=== PATIENT | female | born 1935 | race Caucasian/White ===

== ENCOUNTER 2018-11-23 15:29 | Emergency (ER) | payer OTHER, MEDICARE ==
[2018-11-23 17:27] LABS: Absolute Lymphocytes (CBC) 1.8 K/uL (0.7-4.9); Absolute Monocytes 1.4 K/uL (0.1-1.3); Absolute Neutrophil 9.3 K/uL (1.8-8.0); Basophils % 0.3 % (0-1.3); Eosinophils % 0.1 % (0-4.4); Hematocrit 40.6 % (36.0-45.0); Lymphocytes % 14.1 % (15.3-44.8); MPV 8.3 fL (7.6-11.3); RBC Red Blood Cell Count 4.33 M/uL (3.86-4.86)
[2018-11-23 17:29] LABS: Protime INR 1.04
[2018-11-23] MEDS ORDERED: ONDANSETRON 4 MG/2 ML VIAL ONE ×2 (17:30→19:29)
[2018-11-23] MEDS ORDERED: FAMOTIDINE 20 MG/2 ML VIAL IV ONE (17:30)
--- NOTE | 2018-11-23 17:32 | RAD REPORT ---
EXAM DESCRIPTION: RAD - Chest Single View - 11/23/2018 5:26 pm CLINICAL HISTORY: vomiting Chest pain. COMPARISON: CHEST SINGLE VIEW dated 08/23/2013 FINDINGS: Portable technique limits examination quality. The lungs are emphysematous but grossly clear. The heart is normal in size. No displaced fractures. IMPRESSION: No acute intrathoracic process suspected. Mild COPD.
[2018-11-23 17:45] LABS: ALT/SGPT 28 U/L (12-78); AST/SGOT 26 U/L (15-37); Albumin 4.3 g/dL (3.4-5.0); Alkaline Phosphatase 96 U/L (45-117); BUN Blood Urea Nitrogen 22 mg/dL (7-18); Bicarbonate 23 mmol/L (21-32); Bilirubin Direct 0.2 mg/dL (0-0.2); Bilirubin Total 0.6 mg/dL (0.2-1.0); Glucose Level 97 mg/dL (74-106); Lipase 98 U/L (73-393); Magnesium 2.2 mg/dL (1.8-2.4); NT PRO-BNP 635 pg/mL (<450); Protein, Total 7.9 g/dL (6.4-8.2); Sodium Level 137 mmol/L (136-145); Troponin (Emerg Dept Use Only) < 0.02 ng/mL (0.0-0.045)
[2018-11-23 17:49] LABS: Potassium 2.8 mmol/L (3.5-5.1)
--- NOTE | 2018-11-23 19:24 | RAD REPORT ---
EXAM DESCRIPTION: CTAbdomen Pelvis W Contrast - 11/23/2018 7:14 pm CLINICAL HISTORY: Abdominal pain. vomiting;Abd pain COMPARISON: No comparisons TECHNIQUE: Biphasic CT imaging of the abdomen and pelvis was performed with 100 ml non-ionic IV cont rast. All CT scans are performed using dose optimization technique as appropriate and may include automated exposure control or mA/KV adjustment according to patient size. FINDINGS: The lung bases are clear. Mild fatty liver is noted. The spleen, adrenal glands and kidneys show no acute finding. No pancreati c mass. Punctate calcifications are seen in the pancreatic body. Moderate aortoiliac atherosclerosis. No bowel obstruction, free air, free fluid or abscess. The appendix is not identified as a discrete structure, however, no secondary findings of appendicitis are identified. No evidence of significan t lymphadenopathy. Very advanced degenerative changes are present both hips. Advanced S-shaped thoracolumbar scoliosis i s present with multilevel degenerative changes. IMPRESSION: No acute intra-abdominal or pelvic finding. Chronic pancreatitis. 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
[2018-11-23] MEDS ORDERED: POTASSIUM 25 MEQ EFFERV TAB ONE (19:29)
[2018-11-23] MEDS ORDERED: KCL 20 MEQ/100 mL IVPB 20 MEQ/100 ML BAG IV ONE (19:30)
[2018-11-23] MEDS ORDERED: NA CHLORIDE 0.9% 1,000 ML ONE (19:30)
[2018-11-23 20:47] LABS: Barbiturates NEGATIVE (NEGATIVE); Benzodiazepines POSITIVE (NEGATIVE); Cocaine NEGATIVE (NEGATIVE); METHAMPHETAM NEGATIVE (NEGATIVE); Methadone NEGATIVE (NEGATIVE); Opiates POSITIVE (NEGATIVE); Phencyclidine NEGATIVE (NEGATIVE); THC Cannibis POSITIVE (NEGATIVE)
[2018-11-23 21:27] LABS: Urine Blood 2+ (NEG); Urine Glucose NEGATIVE (NEG); Urine Protein 2+ (NEG); Urine Specific Gravity 1.015 (1.005-1.030)
[2018-11-23] MEDS ORDERED: NA CHLORIDE 0.9% 50 ML IV ONE (22:00)
[2018-11-23] MEDS ORDERED: CEFTRIAXONE 1000 MG/VIAL ONE (22:00)
[2018-11-23 22:35] LABS: BUN Blood Urea Nitrogen 22 mg/dL (7-18); Bicarbonate 24 mmol/L (21-32); Glucose Level 86 mg/dL (74-106); Potassium 4.2 mmol/L (3.5-5.1); Sodium Level 137 mmol/L (136-145)
--- NOTE | 2018-11-23 22:50 | EDPHYS ---
Physician Documentation [facility] Name: Yulissa Low Age: 83 yrs Sex: Female : 1935 Arrival Date: 11/23/2018 Time: 15:33 Bed 14 Private MD: Out, [facility] ED Physician Alec Hernández HPI: 11/23 17:15 This 83 yrs old Female presents to ER via Ambulatory with complaints of cp Abdominal Pain, Vomiting. 17:15 The patient presents with abdominal pain that is diffuse. Onset: The symptoms/episode cp began/occurred 2 day(s) ago. The symptoms do not radiate. Associated signs and symptoms: Pertinent positives: nausea, vomiting, Pertinent negatives: blood in stools, chest pain, constipation, diarrhea, fever, vomiting blood. The symptoms are described as constant. Severity of pain: in the emergency department the pain is unchanged despite home interventions. Historical: - Allergies: 15:42 No Known Allergies; hj - Home Meds: 15:42 gabapentin 800 mg oral tab 1 tab 3 times per day [Active]; librium 10 mg OD daily [Active]; Synthroid 112 mcg Oral tab 1 tab once daily [Active]; Mobic 15 mg oral tab 1 tab once daily [Active]; Effexor Oral 75 mg three times a day [Active]; trazodone 150 mg Oral tab 1 tab 3 times per day [Active]; [place] 10-325 mg Oral tab 1 tab every 4 hours [Active]; Lidoderm 5 % Topical ptmd 1 patch once daily [Active]; - PMHx: 17:29 Hypothyroidism; la1 - PSHx: 15:42 None; hj - Immunization history:: Adult Immunizations not up to date. - Social history:: Smoking status: Patient/guardian denies using tobacco, Patient/guardian denies using alcohol. - Ebola Screening: : Patient negative for fever greater than or equal to 101.5 degrees Fahrenheit, and additional compatible Ebola Virus Disease symptoms Patient denies exposure to infectious person Patient denies travel to an Ebola-affected area in the 21 days before illness onset. ROS: 17:20 Constitutional: Positive for poor PO intake, Negative for body aches, chills, fever. cp 17:20 Eyes: Negative for injury, pain, redness, and discharge. cp 17:20 Cardiovascular: Negative for chest pain, edema, palpitations. 17:20 Respiratory: Negative for cough, shortness of breath, wheezing. 17:20 Abdomen/GI: Positive for abdominal pain, nausea and vomiting, anorexia, Negative for constipation, hematemesis, black/tarry stool, rectal bleeding. 17:20 : Negative for urinary symptoms. 17:20 Skin: Negative for cellulitis, rash. 17:20 Neuro: Negative for altered mental status, dizziness, headache, weakness. 17:20 All other systems are negative. Exam: 17:20 ECG was reviewed by the Attending Physician. cp 17:23 Constitutional: The patient appears in no acute distress, alert, awake, cp non-diaphoretic, non-toxic, well developed, well nourished. 17:23 Head/Face: Normocephalic, atraumatic. cp 17:23 Eyes: Pupils equal round and reactive to light, extra-ocular motions intact. Lids and lashes normal. Conjunctiva and sclera are non-icteric and not injected. Cornea within normal limits. Periorbital areas with no swelling, redness, or edema. ENT: Nares patent. No nasal discharge, no septal abnormalities noted. Tympanic membranes are normal and external auditory canals are clear. Oropharynx with no redness, swelling, or masses, exudates, or evidence of obstruction, uvula midline. Mucous membranes moist. Chest/axilla: Normal chest wall appearance and motion. Nontender with no deformity. No lesions are appreciated. 17:23 Cardiovascular: Rate: normal, Rhythm: regular, Edema: is not appreciated, JVD: is not appreciated. 17:23 Respiratory: the patient does not display signs of respiratory distress, Respirations: normal, no use of accessory muscles, no retractions, no splinting, no tachypnea, labored breathing, is not present, Breath sounds: are clear throughout, no decreased breath sounds, no stridor, no wheezing. 17:23 Abdomen/GI: Inspection: abdomen appears normal, Bowel sounds: active, all quadrants, Palpation: soft, in all quadrants, mild abdominal tenderness, in all quadrants. 17:23 Back: CVA tenderness, is absent. 17:23 Skin: cellulitis, is not appreciated, no rash present. 17:23 Neuro: Orientation: to person, place \T\ time. Mentation: is normal, Cerebellar function: is grossly normal, Motor: moves all fours, strength is normal, Sensation: is normal. Vital Signs: 15:43 BP 171 / 100; Pulse 92; Resp 18; Temp 98.2(O); Pulse Ox 97% on R/A; Weight 61.23 kg; hj Height 5 ft. 4 in. (162.56 cm); Pain 3/10; 18:22 BP 174 / 107; Pulse 90; Resp 8; Temp 99.2(O); Pulse Ox 98% on R/A; mh5 18:42 BP 161 / 93; Pulse 89; Resp 16; Pulse Ox 98% on R/A; la1 19:33 BP 159 / 94; Pulse 77; Resp 18 S; Pulse Ox 98% on R/A; cc3 20:45 BP 153 / 87; Pulse 76; Resp 18 S; Pulse Ox 98% on R/A; cc3 21:30 BP 155 / 83; Pulse 77; Resp 19 S; Pulse Ox 98% on R/A; cc3 22:30 BP 140 / 80; Pulse 74; Resp 18 S; Pulse Ox 98% on R/A; cc3 15:43 Body Mass Index 23.17 (61.23 kg, 162.56 cm) hj MDM: 16:55 Patient medically screened. cp 18:00 Differential diagnosis: diverticulitis, gastritis, non-specific abd pain, pancreatitis, cp Ureterolithiasis, urinary tract infection. 22:45 Data reviewed: vital signs, nurses notes, lab test result(s), EKG, radiologic studies, cp CT scan. 22:45 Counseling: I had a detailed discussion with the patient and/or guardian regarding: the cp historical points, exam findings, and any diagnostic results supporting the discharge/admit diagnosis, lab results, radiology results, to return to the emergency department if symptoms worsen or persist or if there are any questions or concerns that arise at home. Response to treatment: the patient's symptoms have markedly improved after treatment, and as a result, I will discharge patient. Special discussion: Based on the patient's Hx, exam, and Dx evaluation, there is no indication for emergent surgery or inpatient Tx. It is understood by the patient/guardian that if the Sx's persist or worsen they need to return immediately for re-evaluation. 11/23 17:08 Order name: Basic Metabolic Panel; Complete Time: 18:18 cp 11/23 22:41 Interpretation: Normal except: K 2.8; BUN 22; GFR 81. cp / 17:08 Order name: CBC with Diff; Complete Time: 17:45 cp 11/23 19:42 Interpretation: Normal except: WBC 12.5; RAQUEL% 74.5; LYM% 14.1; NEUT A 9.3; MNA 1.4. cp /04 17:08 Order name: LFT's; Complete Time: 18:18 cp 11/23 17:08 Order name: Magnesium; Complete Time: 18:18 cp 11/23 17:08 Order name: NT PRO-BNP; Complete Time: 18:18 cp 11/23 17:08 Order name: PT-INR; Complete Time: 17:45 cp 11/23 17:08 Order name: Troponin (emerg Dept Use Only); Complete Time: 18:18 cp 11/23 17:08 Order name: XRAY Chest (1 view); Complete Time: 17:45 cp 11/23 17:08 Order name: Lipase; Complete Time: 18:18 cp 11/23 17:45 Order name: UDS; Complete Time: 21:16 cp 11/23 22:42 Interpretation: Normal except: BZO POSITIVE; THC POSITIVE; OPI POSITIVE. cp 11/23 20:52 Order name: Urine Dipstick--Ancillary (enter results); Complete Time: 21:33 em1 11/23 21:34 Interpretation: Normal except: UKET 4+; UBLD 2+; UPROT 2+; U NIT POSITIVE; UESTR TRACE. cp 11/23 21:17 Order name: BMP: recheck potassium after potassium is done; Complete Time: 22:37 cp 11/23 22:37 Interpretation: Normal except: BUN 22; CA 8.4. cp 11/23 17:08 Order name: EKG; Complete Time: 17:09 cp 11/23 17:08 Order name: Cardiac monitoring; Complete Time: 18:19 cp 11/23 17:08 Order name: EKG - Nurse/Tech; Complete Time: 17:27 cp 11/23 17:08 Order name: IV Saline Lock; Complete Time: 17:27 cp 11/23 17:08 Order name: Labs collected and sent; Complete Time: 17:28 cp 11/23 17:08 Order name: O2 Per Protocol; Complete Time: 17:28 cp 11/23 17:08 Order name: O2 Sat Monitoring; Complete Time: 17:28 cp 11/23 17:08 Order name: CT Abd/Pelvis - W/Contrast: give oral contrast; Complete Time: 19:41 cp 11/23 19:43 Order name: PO challenge; Complete Time: 19:50 cp EC:20 Rate is 60 beats/min. Rhythm is regular. IA interval is normal. QRS interval is normal. cp QT interval is normal. Interpreted by me. Reviewed by me. Administered Medications: 17:28 Drug: Zofran 4 mg Route: IVP; Site: right antecubital; la1 18:41 Follow up: Response: No adverse reaction la1 17:28 Drug: Pepcid 20 mg Route: IVP; Site: right antecubital; la1 18:40 Follow up: Response: Adverse reaction, Physician notified la1 19:25 Drug: Zofran 4 mg Route: IVP; Site: right antecubital; cc3 20:00 Follow up: Response: No adverse reaction; Nausea is decreased cc3 19:29 Drug: NS 0.9% 1000 ml Route: IV; Rate: 100 ml/hr; Site: right antecubital; cc3 22:30 Follow up: Response: No adverse reaction; IV Status: Order to discontinue infusion; cc3 patient discharged home 19:29 Drug: Potassium Chloride 20 mEq Route: IV; Rate: calculated rate; Site: right cc3 antecubital; 21:30 Follow up: Response: No adverse reaction; IV Status: Completed infusion; IV Intake: cc3 100ml 19:40 Drug: Potassium Effervescent Tablet 50 mEq Route: PO; cc3 20:00 Follow up: Response: No adverse reaction cc3 21:50 Drug: Rocephin - (cefTRIAXone) 1 grams Route: IVPB; Infused Over: 30 mins; Site: right cc3 antecubital; 22:20 Follow up: Response: No adverse reaction; IV Status: Completed infusion; IV Intake: [id number] Disposition: 11/23/18 22:49 Discharged to Home. Impression: Nausea and vomiting, Hypokalemia, Urinary tract infection, site not specified. - Condition is Stable. - Discharge Instructions: Dehydration, Adult, Nausea and Vomiting, Adult, Urinary Tract Infection, Adult, Hypokalemia. - Prescriptions for Augmentin 875- 125 mg Oral Tablet - take 1 tablet by ORAL route every 12 hours for 7 days; 14 tablet. Zofran 4 mg Oral Tablet - take 1 tablet by ORAL route every 12 hours As needed; 20 tablet. - Medication Reconciliation Form, Thank You Letter, Antibiotic Education, Prescription Opioid Use form. - Follow up: Private Physician; When: 2 - 3 days; Reason: Recheck today's complaints. - Problem is new. - Symptoms have improved. Signatures: Dispatcher [employer] EDMS Juan C Tucker RN RN la1 Petr Bentley RN RN hj Crow Ramsey, PA PA cp Lilian Perdue cc3 Corrections: (The following items were deleted from the chart) 19:42 17:45 Normal except: WBC 12.5; RAQUEL% 74.5; LYM% 14.1; NEUT A 9.3. cp cp 22:37 22:37 Normal except: BUN 22. cp cp 23:01 22:49 11/23/2018 22:49 Discharged to Home. Impression: Nausea and vomiting; cc3 Hypokalemia; Urinary tract infection, site not specified. Condition is Stable. Forms are Medication Reconciliation Form, Thank You Letter, Antibiotic Education, Prescription Opioid Use. Follow up: Private Physician; When: 2 - 3 days; Reason: Recheck today's complaints. Problem is new. Symptoms have improved. cp
--- NOTE | 2018-11-23 22:50 | ER ---
Nurse's Notes [facility] Name: Yulissa Low Age: 83 yrs Sex: Female : 1935 Arrival Date: 11/23/2018 Time: 15:33 Bed 14 Private MD: Out, [facility] Diagnosis: Nausea and vomiting;Hypokalemia;Urinary tract infection, site not specified Presentation: 11/23 15:37 Presenting complaint: Patient states: I feel sick to my stomach and i feel queazy for hj the past 2 days, vomited x 3; reports nausea; reports chills; denies diarrhea/ constipation;a\T\O x 3; denies chest pain;. Transition of care: patient was not received from another setting of care. Onset of symptoms was November 23, 2018. Risk Assessment: Do you want to hurt yourself or someone else? Patient reports no desire to harm self or others. Initial Sepsis Screen: Does the patient meet any 2 criteria? No. Patient's initial sepsis screen is negative. Does the patient have a suspected source of infection? No. Patient's initial sepsis screen is negative. Care prior to arrival: None. 15:37 Method Of Arrival: Ambulatory 15:37 Acuity: ELLEN 3 hj Triage Assessment: 15:42 General: Appears in no apparent distress. uncomfortable, Behavior is calm, cooperative, hj appropriate for age. Pain: Complains of pain in abdomen. GI: Reports upper abdominal pain, nausea, vomiting. Historical: - Allergies: 15:42 No Known Allergies; hj - Home Meds: 15:42 gabapentin 800 mg oral tab 1 tab 3 times per day [Active]; librium 10 mg OD daily [Active]; Synthroid 112 mcg Oral tab 1 tab once daily [Active]; Mobic 15 mg oral tab 1 tab once daily [Active]; Effexor Oral 75 mg three times a day [Active]; trazodone 150 mg Oral tab 1 tab 3 times per day [Active]; [place] 10-325 mg Oral tab 1 tab every 4 hours [Active]; Lidoderm 5 % Topical ptmd 1 patch once daily [Active]; - PMHx: 17:29 Hypothyroidism; la1 - PSHx: 15:42 None; hj - Immunization history:: Adult Immunizations not up to date. - Social history:: Smoking status: Patient/guardian denies using tobacco, Patient/guardian denies using alcohol. - Ebola Screening: : Patient negative for fever greater than or equal to 101.5 degrees Fahrenheit, and additional compatible Ebola Virus Disease symptoms Patient denies exposure to infectious person Patient denies travel to an Ebola-affected area in the 21 days before illness onset. Screenin:43 Abuse screen: Denies threats or abuse. Denies injuries from another. Nutritional hj screening: No deficits noted. Tuberculosis screening: No symptoms or risk factors identified. Fall Risk None identified. Assessment: 15:43 GI: Bowel sounds present X 4 quads. hj 18:41 General: Appears comfortable, Behavior is calm, cooperative. Pain: Complains of pain in la1 abdomen. Neuro: Level of Consciousness is awake, alert, obeys commands, Oriented to person, place, time, situation. Cardiovascular: Capillary refill < 3 seconds Patient's skin is warm and dry. Respiratory: Airway is patent Respiratory effort is even, unlabored, Respiratory pattern is regular, symmetrical. GI: Bowel sounds present X 4 quads. Abd is soft and non tender X 4 quads. Reports nausea, vomiting. : No signs and/or symptoms were reported regarding the genitourinary system. 19:15 Reassessment: Patient appears in no apparent distress at this time. Patient and/or cc3 family updated on plan of care and expected duration. Pain level reassessed. Patient is alert, oriented x 3, equal unlabored respirations, skin warm/dry/pink. Received this female patient from morning shift NERI Irizarry as a case of abdominal pain and vomiting. 20:16 Reassessment: Patient appears in no apparent distress at this time. Patient and/or cc3 family updated on plan of care and expected duration. Pain level reassessed. Patient is alert, oriented x 3, equal unlabored respirations, skin warm/dry/pink. 21:35 Reassessment: Patient appears in no apparent distress at this time. Patient and/or cc3 family updated on plan of care and expected duration. Pain level reassessed. Patient is alert, oriented x 3, equal unlabored respirations, skin warm/dry/pink. 22:55 Reassessment: Patient appears in no apparent distress at this time. Patient and/or cc3 family updated on plan of care and expected duration. Pain level reassessed. Patient is alert, oriented x 3, equal unlabored respirations, skin warm/dry/pink. EMILY Ramsey discharged the patient home with prescription given. IV cannula removed and patient left ER vitally stable by wheelchair with her daughter. Vital Signs: 15:43 BP 171 / 100; Pulse 92; Resp 18; Temp 98.2(O); Pulse Ox 97% on R/A; Weight 61.23 kg; hj Height 5 ft. 4 in. (162.56 cm); Pain 3/10; 18:22 BP 174 / 107; Pulse 90; Resp 8; Temp 99.2(O); Pulse Ox 98% on R/A; mh5 18:42 BP 161 / 93; Pulse 89; Resp 16; Pulse Ox 98% on R/A; la1 19:33 BP 159 / 94; Pulse 77; Resp 18 S; Pulse Ox 98% on R/A; cc3 20:45 BP 153 / 87; Pulse 76; Resp 18 S; Pulse Ox 98% on R/A; cc3 21:30 BP 155 / 83; Pulse 77; Resp 19 S; Pulse Ox 98% on R/A; cc3 22:30 BP 140 / 80; Pulse 74; Resp 18 S; Pulse Ox 98% on R/A; cc3 15:43 Body Mass Index 23.17 (61.23 kg, 162.56 cm) ED Course: 15:33 Patient arrived in ED. mr 15:34 Out, [facility] is Private Physician. mr 15:40 Triage completed. hj 15:43 Arm band placed on left wrist. hj 15:43 Patient has correct armband on for positive identification. Placed in gown. Bed in low hj position. Call light in reach. Side rails up X 1. 16:55 Crow Ramsey PA is PHCP. cp 16:55 Alec Hernández MD is Attending Physician. cp 16:59 Juan C Tucker, NERI is Primary Nurse. la1 17:21 X-ray completed. Portable x-ray completed in exam room. Patient tolerated procedure az well. 17:27 XRAY Chest (1 view) In Process Unspecified. EDMS 17:49 Notified Nurse Practitioner and/or Physician Anime Designer of a critical lab result(s), la1 K2.8. 18:23 stopper setter on. Pulse ox on. NIBP on. mh5 18:42 No provider procedures requiring assistance completed. Inserted saline lock: 20 gauge la1 in right antecubital area, using aseptic technique. Blood collected. 19:[address] via stretcher. nj 19:14 CT completed. Patient tolerated procedure well. Patient moved back from [place]. nj 19:14 CT Abd/Pelvis - W/Contrast: give oral contrast In Process Unspecified. EDMS 22:55 IV discontinued, intact, bleeding controlled, No redness/swelling at site. Pressure cc3 dressing applied. Administered Medications: 17:28 Drug: Zofran 4 mg Route: IVP; Site: right antecubital; la1 18:41 Follow up: Response: No adverse reaction la1 17:28 Drug: Pepcid 20 mg Route: IVP; Site: right antecubital; la1 18:40 Follow up: Response: Adverse reaction, Physician notified la1 19:25 Drug: Zofran 4 mg Route: IVP; Site: right antecubital; cc3 20:00 Follow up: Response: No adverse reaction; Nausea is decreased cc3 19:29 Drug: NS 0.9% 1000 ml Route: IV; Rate: 100 ml/hr; Site: right antecubital; cc3 22:30 Follow up: Response: No adverse reaction; IV Status: Order to discontinue infusion; cc3 patient discharged home 19:29 Drug: Potassium Chloride 20 mEq Route: IV; Rate: calculated rate; Site: right cc3 antecubital; 21:30 Follow up: Response: No adverse reaction; IV Status: Completed infusion; IV Intake: cc3 100ml 19:40 Drug: Potassium Effervescent Tablet 50 mEq Route: PO; cc3 20:00 Follow up: Response: No adverse reaction cc3 21:50 Drug: Rocephin - (cefTRIAXone) 1 grams Route: IVPB; Infused Over: 30 mins; Site: right cc3 antecubital; 22:20 Follow up: Response: No adverse reaction; IV Status: Completed infusion; IV Intake: [id number] Intake: 21:30 IV: 100ml; Total: 100ml. cc3 22:20 IV: 50ml; Total: 150ml. cc3 Outcome: 22:49 Discharge ordered by . cp 22:55 Discharged to home via wheelchair, with family. cc3 22:55 Condition: stable 22:55 Discharge instructions given to patient, family, Instructed on discharge instructions, follow up and referral plans. medication usage, Demonstrated understanding of instructions, follow-up care, medications, Prescriptions given X 2. 23:01 Patient left the ED. cc3 Signatures: Dispatcher [employer] EDYulissa Gutierrez, Juan C, RN RN la1 Petr Bentley RN RN hj Crow Ramsey PA PA cp Jordan, Nathan nj Martinez, Maria [facility] Lilian Perdue cc3 Abby Hauser Corrections: (The following items were deleted from the chart) 15:46 15:43 Pulse 92bpm; Resp 18bpm; Pulse Ox 97% RA; Temp 98.2F Oral; 61.23 kg; Height 5 ft. hj 4 in.; BMI: 23.1; Pain 3/10; hj
[2018-11-23 23:26] VITALS: TEMP 99.2; O2SAT 98
[2018-11-23 23:30] VITALS: BP 159/94
--- NOTE | 2018-11-24 13:56 | EKG ---
Test Date: 2018-11-23 Test Time: 17:16:09 [employer] Furn[employer] Laborer: YARA MEASUREMENT RESULTS: Intervals: Rate: 60 DE: 158 QRSD: 80 QT: 384 QTc: 384 [place]: P: 53 DE: 158 QRS: 80 T: 63 INTERPRETIVE STATEMENTS: Normal sinus rhythm with sinus arrhythmia Normal ECG Compared to ECG 08/22/2013 10:38:13 No significant changes Electronically Signed On 11-24-18 13:53:57 TICKET ATTENDANT by Edward Jordan
== END 2018-11-23 23:01 | disposition home or self-care (01) ==
LOC: ER 15:29
DX: N39.0 Urinary tract infection, site not specified (principal); E87.6 Hypokalemia; E03.9 Hypothyroidism, unspecified
CPT/HCPCS: 36415; 71045; 74177; 80048 ×2; 80076; 80307 ×8; 81003; 83690; 83735; 83880; 84484; 85025; 85610; 93005; 96365; 96366; 96367; 96375; 99285; J2405 ×2; J7030